=== PATIENT | male | born 1970 | race Caucasian/White ===

== ENCOUNTER 2016-11-15 20:04 | Emergency (ER) | payer BC ==
--- NOTE | 2016-11-15 20:30 | ERNOTE ---
Date of Service: 11/15/16 Time Seen by Provider: 11/15/16 20:28 Stated Complaint: CHEST CONGESTION. DIABETES ISSUES Source: patient Immunizations: IMMUNIZATION HX Immunizations Up to Date Yes History of Influenza Vaccine No Hx Pneumococcal Vaccination No Allergies/Adverse Reactions: Allergies tetracycline [Tetracycline] Allergy (Verified 11/15/16 20:24) vomiting Home Medications: HOME MEDICATIONS metFORMIN HCL [Glucophage] 500 mg PO BIDWM 06/04/16 [Last Taken Unknown] Aspirin 81 mg PO DAILY 11/15/16 [Last Taken Unknown] Atorvastatin Calcium 40 mg PO DAILY 11/15/16 [Last Taken Unknown] Clonazepam 1 mg PO DAILY 11/15/16 [Last Taken Unknown] Ibuprofen 800 mg PO QID 11/15/16 [Last Taken Unknown] Losartan Potassium [Cozaar] 100 mg PO DAILY 11/15/16 [Last Taken Unknown] - History of Present Ilness Narrative: COLD SX FOR 1 WEEK. STUFFY NOSE WITH CONGESTION AND OCC COUGH. ON OTC "COLD MEDICINE". NO FEVER. IS A TYPE 2 DM ON ORAL MEDS BUT HAS NOT BEEN FOLLOWING HIS BGM'S TRAINED TO DO. HIS MOTHER TOLD HIM TO GET CHECKED. Review of Systems - Review of Systems Constitutional: Present: See HPI, malaise EYE: Present: no symptoms reported ENT: Present: See HPI, nose congestion, nasal drainage Respiratory: Present: See HPI, cough Cardiology: Present: no symptoms reported Gastrointestinal/Abdominal: Present: no symptoms reported Genitourinary: Present: no symptoms reported Musculoskeletal: Present: no symptoms reported Skin: Present: no symptoms reported Neurological: Present: no symptoms reported Endocrine: Present: no symptoms reported Hematologic/Lymphatic: Present: no symptoms reported Psych: Present: no symptoms reported All Other Systems: All systems neg except as marked - Patient's Past Medical History Patient History - Medical: Diabetes Type 2 Patient History - Cardiac/Respiratory: Hypertension Patient History - Cancer: No Hx of Cancer Patient History - Surgical Procedures: No surgical history Patient History - Other: None - Social History Living Situations: alone Abuse History: No History of abuse Psych History: No pertinent hx Smoking Status: Never smoker Have you smoked in the past 12 months: No Do you dip or chew tobacco: No Alcohol Use: rarely Drug Use: none - Immunizations Immunizations Up to Date: Yes Hx Pneumococcal Vaccination: No History of Influenza Vaccine: No Physical Exam - Physical Exam General Appearance: Present: wd/wn, alert, no apparent distress Eye Exam: Normal inspection: bilateral - WEARS CONTACTS. , PERRL: bilateral, EOMI: bilateral Ears, Nose, Throat: Present: normal except -, nasal congestion, normal pharynx. Absent: dry mucous membranes Neck: Present: normal inspection Respiratory: Present: no respiratory distress, normal breath sounds, no accessory muscle use, chest nontender, lungs clear Cardiovascular/Chest: Present: regular rate, rhythm, no murmur, normal peripheral pulses Neurological Exam: Present: alert, oriented ED Progress - Vital Signs Vital Signs: Vital Signs 11/15/16 20:14 Temperature 36.4 C L Pulse Rate 92 Respiratory 16 Rate Blood Pressure 117/77 O2 Sat by Pulse 98 Oximetry - Progress/Reassessment Chief Complaint: Upper Respiratory Symptoms Departure - Departure Clinical Impression: Cold Disposition: Home self-care Condition: Good Instructions: Upper Respiratory Infection, Adult, [id number] Additional Instructions: SYMPTOMATIC TREATMENT FOR COLD. PUSH EXTRA FLUIDS. USE NETI-POT FOR NASAL AND SINUS MUCOUS. TYLENOL FOR ACHES AND PAINS AND FEVER IF NEEDED. IF YOU HAVE ANY ALLERGIC PROBLEMS IN THE PAST YOU MAY TRY AVERY OR ZYRTEC OR CLARITAN BUT IT WILL NOT HELP THE COLD PORTION OF YOUR SYMPTOMS. MAKE IT A HABIT TO FOLLOW YOU DIABETIC DIET, TAKE YOUR MEDS , AND CHECK YOUR BLOOD SUGARS YOU HAVE BEEN TAUGHT. Referrals: Jessica Degroot FNP [Primary Care Provider] -
[2016-11-15 20:49] VITALS: BP 112/70
== END 2016-11-15 20:48 | disposition home or self-care (01) ==
LOC: ER 20:04
DX: J00 Acute nasopharyngitis [common cold] (principal); E11.9 Type 2 diabetes mellitus without complications; I10 Essential (primary) hypertension